=== PATIENT | male | born 1990 | race Caucasian/White ===

== ENCOUNTER 2019-02-08 08:54 | Inpatient (IN) | payer OTHER ==
[2019-02-08] VITALS (14 sets, daily range): BP systolic 114–140; BP diastolic 50–74; PULSE 49–104; RESP 13–22; Ht 177.8 cm; Wt 94.4 kg
[~2019-02-08] VITALS: Ht 177.8 cm; Wt 94.4 kg
[~2019-02-08 08:54] MED LIST: ASC500 PO; CEFAZOLIN 1 GM/50 ML (PMX) 50 ML IVPB SCH; HYDR-3601 PO; SEVOFLURANE 15 MIN ONE; ZINC220C5 PO
[2019-02-08] MEDS: LACTATED RINGER'S 1,000 ML IV SCH ×2 (15:00→22:17)
[2019-02-08] MEDS ORDERED: ROCURONIUM 50 MG INJ ONE ×4 (15:49→18:31)
[2019-02-08] MEDS ORDERED: FENTAnyl 50 MCG/ML VIAL ONE ×2 (15:49→19:43)
[2019-02-08] MEDS ORDERED: ROPIVACAINE 0.2% 20 ML VIAL ONE (15:49)
[2019-02-08] MEDS ORDERED: MIDAZOLAM 1 MG/ML 2 ML INJ ONE (15:49)
[2019-02-08] MEDS ORDERED: ROPIVACAINE 0.5 % 30 ML VIAL ONE (15:49)
[2019-02-08] MEDS ORDERED: PROPOFOL 20 ML ONE (15:49)
[2019-02-08] MEDS ORDERED: METOCLOPRAMIDE 10 MG INJ ONE (16:44)
[2019-02-08] MEDS ORDERED: DEXAMETHASONE 4 MG/ML 5 ML INJ ONE (16:44)
[2019-02-08] MEDS ORDERED: CEFAZOLIN 1 GM INJ ONE (16:44)
[2019-02-08] MEDS ORDERED: KETOROLAC 30 MG INJ ONE (16:44)
[2019-02-08] MEDS ORDERED: ONDANSETRON 4 MG INJ ONE (16:44)
[2019-02-08] MEDS ORDERED: HYDROmorphONE 1 MG/5 ML IV SYRINGE IV PRN ×3 (18:00)
[2019-02-08] MEDS ORDERED: METOCLOPRAMIDE 10 MG INJ IV PRN (18:00)
[2019-02-08] MEDS ORDERED: MEPERIDINE 25 MG INJ IV PRN (18:00)
[2019-02-08] MEDS ORDERED: ONDANSETRON 4 MG INJ IV PRN (18:00)
[2019-02-08] MEDS ORDERED: DIPHENHYDRAMINE 50 MG INJ IV PRN (18:00)
[2019-02-08] MEDS ORDERED: OXYCODONE/ACETAMINOPHEN (5/325) TAB PO PRN (18:00)
[2019-02-08] MEDS ORDERED: FENTAnyl 50 MCG/ML VIAL IV PRN ×2 (18:00)
[2019-02-08] MEDS ORDERED: SUGAMMADEX SODIUM 200 MG/2 ML VIAL IV ONE (19:44)
[2019-02-08] MEDS ORDERED: CYCLOBENZAPRINE 10 MG TAB PO ONE (20:30)
[2019-02-08] MEDS ORDERED: ZOLPIDEM 5 MG TAB PO PRN (20:30)
[2019-02-08] MEDS ORDERED: ONDANSETRON 4 MG TAB PO PRN (20:30)
[2019-02-08] MEDS: FENTAnyl 50 MCG/ML VIAL IV PRN ×2 (21:00→22:17)
[2019-02-08] MEDS: morphine 2 MG INJ IV PRN (22:07)
[2019-02-08] MEDS: ASCORBIC ACID 500 MG TAB PO SCH (22:16)
[2019-02-08] MEDS: CEFAZOLIN 1 GM/50 ML (PMX) 50 ML IVPB SCH (22:17)
[2019-02-09] MEDS: HYDROCODONE/APAP (5/325) TAB PO PRN ×2 (01:18→20:29)
[2019-02-09] MEDS: morphine 2 MG INJ IV PRN ×10 (02:27→21:46)
[2019-02-09] MEDS: CEFAZOLIN 1 GM/50 ML (PMX) 50 ML IVPB SCH ×3 (05:25→20:26)
[2019-02-09 07:21] VITALS: BP 120/58; PULSE 71; RESP 16
[2019-02-09] MEDS: ZINC SULFATE 220 MG CAP PO SCH (09:10)
[2019-02-09] MEDS: ASCORBIC ACID 500 MG TAB PO SCH ×2 (09:10→20:26)
[2019-02-09] MEDS: LACTATED RINGER'S 1,000 ML IV SCH ×3 (10:20→14:45)
[2019-02-09 14:13] VITALS: BP 119/60; PULSE 72; RESP 16
[2019-02-09 19:42] VITALS: BP 129/72; PULSE 67; RESP 16
[2019-02-10] MEDS: morphine 2 MG INJ IV PRN ×3 (01:00→05:34)
[2019-02-10] MEDS: LACTATED RINGER'S 1,000 ML IV SCH (01:01)
[2019-02-10 02:13] VITALS: BP 126/73; PULSE 69; RESP 18
[2019-02-10] MEDS: CEFAZOLIN 1 GM/50 ML (PMX) 50 ML IVPB SCH ×2 (05:34→14:16)
[2019-02-10] MEDS: morphine 4 MG/ML VIAL IV PRN ×5 (07:47→21:38)
[2019-02-10 08:07] VITALS: BP 143/79; PULSE 55; RESP 19
[2019-02-10] MEDS: ASCORBIC ACID 500 MG TAB PO SCH ×2 (09:36→21:37)
[2019-02-10] MEDS: ZINC SULFATE 220 MG CAP PO SCH (09:36)
[2019-02-10 14:00] VITALS: BP 159/83; PULSE 53; RESP 19
[2019-02-10 20:00] VITALS: BP 140/75; PULSE 54; RESP 19
[2019-02-10] MEDS ORDERED: MAGNESIUM HYDROXIDE 30ML CUP PO PRN (21:00)
[2019-02-10] MEDS: SENNA TAB PO SCH (21:00)
[2019-02-10] MEDS ORDERED: ACETAMINOPHEN 325 MG TAB PO PRN (21:00)
[2019-02-10] MEDS ORDERED: MAGNESIUM HYDROXIDE 30ML CUP ONE (21:20)
[2019-02-10] MEDS ORDERED: SENNA TAB ONE (21:20)
[2019-02-11] MEDS: HYDROCODONE/APAP (5/325) TAB PO PRN ×5 (00:23→16:40)
[2019-02-11 02:00] VITALS: BP 131/72; PULSE 51; RESP 19
[2019-02-11 08:00] VITALS: BP 131/75; PULSE 52; RESP 18
[2019-02-11] MEDS: ASCORBIC ACID 500 MG TAB PO SCH (08:32)
[2019-02-11] MEDS: ZINC SULFATE 220 MG CAP PO SCH (08:32)
[2019-02-11] MEDS: SENNA TAB PO SCH (08:33)
[2019-02-11 14:00] VITALS: BP 136/74; PULSE 58; RESP 18
== END 2019-02-11 17:57 | DRG 494 ==
LOC: REC 13:53 → PP2 21:53
PROVIDERS: ADMIT Podiatrist Foot & Ankle Surgery; ATTEND Internal Medicine
PROC: 0SNG0ZZ Release Left Ankle Joint, Open Approach (ICD-10-PCS; 2019-02-08)
PROC: 0SN Lower Joints, Release (ICD-10-PCS; 2019-02-08)
PROC: 0L8P0ZZ Division of Left Lower Leg Tendon, Open Approach (ICD-10-PCS; principal; 2019-02-08 15:30)
DX: Q66.0 Congenital talipes equinovarus (principal); Q68.8 Other specified congenital musculoskeletal deformities
CPT/HCPCS: 73610; 80048; 80053; 85025; 97110; 97116; 97161; 97530; C1713; J0690; J1100; J1885; J2250; J2270; J2405; J2765; J2795; J3010; J7120

== ENCOUNTER 2019-02-11 17:49 | Inpatient (IN) | payer OTHER ==
[~2019-02-11] VITALS: Ht 177.8 cm; Wt 93.0 kg
[~2019-02-11 17:49] MED LIST changes: -CEFAZOLIN 1 GM/50 ML (PMX) 50 ML IVPB SCH; -SEVOFLURANE 15 MIN ONE
[2019-02-11] MEDS ORDERED: ACETAMINOPHEN 325 MG TAB PO PRN (18:30)
[2019-02-11] MEDS ORDERED: LACTULOSE 30ML CUP PO PRN (18:30)
[2019-02-11] MEDS ORDERED: ZOLPIDEM 5 MG TAB PO PRN (18:30)
[2019-02-11] MEDS ORDERED: BISACODYL 10 MG SUPP PR PRN (18:30)
[2019-02-11] MEDS ORDERED: PENDING SANTYL ORDER FOR WOUND CARE XX PRN (18:30)
[2019-02-11] MEDS ORDERED: MAGNESIUM HYDROXIDE 30ML CUP PO PRN (18:30)
[2019-02-11] MEDS ORDERED: HYDROCODONE/APAP (5/325) TAB PO PRN (18:30)
[2019-02-11 20:00] VITALS: BP 125/65; PULSE 87; RESP 18
[2019-02-11] MEDS: ASCORBIC ACID 500 MG TAB PO SCH (20:08)
[2019-02-11] MEDS: HYDROCODONE/APAP (5/325) TAB PO PRN (20:08)
[2019-02-11] MEDS: DOCUSATE SODIUM 100 MG CAP PO SCH (20:08)
[2019-02-11] MEDS: SENNA TAB PO SCH (20:09)
[2019-02-11] MEDS ORDERED: SENNA TAB PO SCH (21:00)
[2019-02-11 23:04] VITALS: Ht 177.8 cm; Wt 93.0 kg
[2019-02-12] MEDS: HYDROCODONE/APAP (5/325) TAB PO PRN ×2 (00:07→05:08)
[2019-02-12 02:00] VITALS: BP 118/72; PULSE 78; RESP 18
[2019-02-12 07:30] VITALS: BP 146/85; PULSE 56; RESP 18
[2019-02-12] MEDS ORDERED: HYDROCODONE/APAP (10/325) TAB PO PRN (08:30)
[2019-02-12] MEDS: DOCUSATE SODIUM 100 MG CAP PO SCH ×2 (09:37→20:47)
[2019-02-12] MEDS: ASCORBIC ACID 500 MG TAB PO SCH ×2 (09:37→20:47)
[2019-02-12] MEDS: ZINC SULFATE 220 MG CAP PO SCH (09:37)
[2019-02-12] MEDS: SENNA TAB PO SCH ×2 (09:37→20:47)
[2019-02-12] MEDS: HYDROCODONE/APAP (10/325) TAB PO PRN ×3 (09:41→20:47)
[2019-02-12] MEDS: ENOXAPARIN 40 MG/0.4 ML SYG SC SCH (13:57)
[2019-02-12 14:00] VITALS: BP 132/74; PULSE 60; RESP 18
[2019-02-12 19:31] VITALS: BP 138/68; PULSE 74; RESP 18
[2019-02-13] MEDS: HYDROCODONE/APAP (10/325) TAB PO PRN ×4 (01:23→20:39)
[2019-02-13 03:01] VITALS: BP 132/73; PULSE 72; RESP 18
[2019-02-13 07:30] VITALS: BP 137/77; PULSE 66; RESP 18
[2019-02-13] MEDS: DOCUSATE SODIUM 100 MG CAP PO SCH ×2 (08:18→20:39)
[2019-02-13] MEDS: ZINC SULFATE 220 MG CAP PO SCH (08:18)
[2019-02-13] MEDS: ASCORBIC ACID 500 MG TAB PO SCH ×2 (08:18→20:39)
[2019-02-13] MEDS: ENOXAPARIN 40 MG/0.4 ML SYG SC SCH (08:19)
[2019-02-13] MEDS: SENNA TAB PO SCH ×2 (08:21→20:39)
[2019-02-13 09:22] VITALS: BP 136/79; PULSE 62; RESP 18
[2019-02-13 14:00] VITALS: BP 137/84; PULSE 77; RESP 20
[2019-02-13 19:56] VITALS: BP 138/78; PULSE 59; RESP 18
[2019-02-14 03:18] VITALS: BP 136/76; PULSE 60; RESP 20
[2019-02-14 07:00] VITALS: BP 150/76; PULSE 71; RESP 18
[2019-02-14] MEDS: SENNA TAB PO SCH ×2 (08:49→20:27)
[2019-02-14] MEDS: ASCORBIC ACID 500 MG TAB PO SCH ×2 (08:49→20:26)
[2019-02-14] MEDS: ZINC SULFATE 220 MG CAP PO SCH (08:49)
[2019-02-14] MEDS: DOCUSATE SODIUM 100 MG CAP PO SCH ×2 (08:49→20:26)
[2019-02-14] MEDS: ENOXAPARIN 40 MG/0.4 ML SYG SC SCH (08:56)
[2019-02-14 14:00] VITALS: BP 134/86; PULSE 67; RESP 18
[2019-02-14 20:00] VITALS: BP 150/79; PULSE 54; RESP 18
[2019-02-14] MEDS: HYDROCODONE/APAP (10/325) TAB PO PRN (20:27)
[2019-02-15 02:00] VITALS: BP 150/85; PULSE 56; RESP 18
[2019-02-15] MEDS: HYDROCODONE/APAP (10/325) TAB PO PRN ×4 (02:38→20:07)
[2019-02-15 07:30] VITALS: BP 155/90; PULSE 54; RESP 18
[2019-02-15] MEDS: ENOXAPARIN 40 MG/0.4 ML SYG SC SCH (09:00)
[2019-02-15] MEDS: ASCORBIC ACID 500 MG TAB PO SCH ×2 (09:27→20:07)
[2019-02-15] MEDS: SENNA TAB PO SCH ×2 (09:27→20:07)
[2019-02-15] MEDS: ZINC SULFATE 220 MG CAP PO SCH (09:27)
[2019-02-15] MEDS: DOCUSATE SODIUM 100 MG CAP PO SCH ×2 (09:27→20:07)
[2019-02-15 14:00] VITALS: BP 140/86; PULSE 58; RESP 18
[2019-02-15 20:00] VITALS: BP 141/77; PULSE 54; RESP 18
[2019-02-16] MEDS: HYDROCODONE/APAP (10/325) TAB PO PRN ×2 (00:08→08:38)
[2019-02-16 02:00] VITALS: BP 138/87; PULSE 54; RESP 18
[2019-02-16 07:00] VITALS: BP 150/79; PULSE 53; RESP 18
[2019-02-16] MEDS: SENNA TAB PO SCH (08:37)
[2019-02-16] MEDS: DOCUSATE SODIUM 100 MG CAP PO SCH (08:37)
[2019-02-16] MEDS: ASCORBIC ACID 500 MG TAB PO SCH (08:38)
[2019-02-16] MEDS: ZINC SULFATE 220 MG CAP PO SCH (08:38)
[2019-02-16] MEDS: ENOXAPARIN 40 MG/0.4 ML SYG SC SCH (08:39)
[2019-02-16 14:00] VITALS: BP 138/81; PULSE 65; RESP 18
== END 2019-02-16 16:58 | disposition home health service (06) | DRG 561 ==
LOC: VRC 18:06
PROVIDERS: ADMIT Physical Medicine & Rehabilitation; ATTEND Internal Medicine Pulmonary Disease
PROC: F07Z5ZZ Bed Mobility Treatment (ICD-10-PCS; principal; 2019-02-12)
PROC: F07Z8ZZ Transfer Training Treatment (ICD-10-PCS; 2019-02-12)
PROC: F07Z9ZZ Gait Training/Functional Ambulation Treatment (ICD-10-PCS; 2019-02-12)
PROC: F08Z2ZZ Grooming/Personal Hygiene Treatment (ICD-10-PCS; 2019-02-12)
PROC: F08Z1ZZ Dressing Techniques Treatment (ICD-10-PCS; 2019-02-12)
PROC: F08Z0ZZ Bathing/Showering Techniques Treatment (ICD-10-PCS; 2019-02-12)
DX: Z47.89 Encounter for other orthopedic aftercare (principal); G89.18 Other acute postprocedural pain; R60.0 Localized edema; Z74.09 Other reduced mobility
CPT/HCPCS: 80053; 81003; 85025; 87081; 87086; 97110; 97116; 97162; 97165; 97530; 97535; 97542; J1650

== ENCOUNTER 2019-04-09 13:34 | Inpatient (IN) | payer OTHER ==
[~2019-04-09] VITALS: Ht 177.8 cm; Wt 97.8 kg
[2019-04-09] VITALS (9 sets, daily range): BP systolic 117–137; BP diastolic 53–77; PULSE 52–98; RESP 13–24; Ht 177.8 cm; Wt 97.8 kg
[~2019-04-09 13:34] MED LIST changes: +CEFAZOLIN 2 GM/50 ML (PMX) 50 ML IVPB ONE
[2019-04-09] MEDS: LACTATED RINGER'S 1,000 ML IV SCH ×2 (15:52→23:40)
[2019-04-09] MEDS ORDERED: PROPOFOL 20 ML ONE ×2 (18:18→18:56)
[2019-04-09] MEDS ORDERED: SUCCINYLCHOLINE CHLORIDE 100 MG/5 ML SYG IV ONE (18:18)
[2019-04-09] MEDS ORDERED: MIDAZOLAM 1 MG/ML 2 ML INJ ONE (18:18)
[2019-04-09] MEDS ORDERED: ROPIVACAINE 0.5 % 30 ML VIAL ONE (18:18)
[2019-04-09] MEDS ORDERED: ROCURONIUM 50 MG INJ ONE (18:18)
[2019-04-09] MEDS ORDERED: LIDOCAINE 2% (SDV) 5 ML INJ ONE (18:18)
[2019-04-09] MEDS ORDERED: CEFAZOLIN 1 GM INJ ONE (18:58)
[2019-04-09] MEDS ORDERED: DEXAMETHASONE 4 MG/ML 5 ML INJ ONE (19:03)
[2019-04-09] MEDS ORDERED: HYDROmorphONE 2 MG/ML SYG ONE (19:03)
[2019-04-09] MEDS ORDERED: FAMOTIDINE 20 MG INJ ONE (19:03)
[2019-04-09] MEDS ORDERED: ONDANSETRON 4 MG INJ ONE (19:03)
[2019-04-09] MEDS ORDERED: LIDOCAINE 1% (MPF) 30 ML INJ ONE (20:47)
[2019-04-09] MEDS ORDERED: LIDOCAINE 1%/EPI 30 ML INJ ONE (20:47)
[2019-04-09] MEDS ORDERED: POLYMYXIN/BACITRACIN 1L IRRIG IRR ONE (20:54)
[2019-04-09] MEDS ORDERED: DIPHENHYDRAMINE 50 MG INJ IV PRN (22:00)
[2019-04-09] MEDS ORDERED: MEPERIDINE 25 MG INJ IV PRN (22:00)
[2019-04-09] MEDS ORDERED: PROCHLORPERAZINE 10 MG INJ IV PRN (22:00)
[2019-04-09] MEDS ORDERED: ONDANSETRON 4 MG INJ IV PRN (22:00)
[2019-04-09] MEDS ORDERED: HYDROmorphONE 1 MG/5 ML IV SYRINGE IV PRN ×3 (22:00)
[2019-04-09] MEDS ORDERED: FENTAnyl 50 MCG/ML VIAL IV PRN ×3 (22:00)
[2019-04-10] VITALS (13 sets, daily range): BP systolic 106–133; BP diastolic 54–84; PULSE 62–96; RESP 14–20
[2019-04-10] MEDS: morphine 2 MG INJ IV PRN ×6 (01:01→22:07)
[2019-04-10] MEDS: HEPARIN 5,000 UNIT/1 ML VIAL SC SCH ×3 (06:56→21:37)
[2019-04-10] MEDS: CEFAZOLIN 1 GM/50 ML (PMX) 50 ML IVPB SCH (09:04)
[2019-04-10] MEDS: LACTATED RINGER'S 1,000 ML IV SCH (10:16)
[2019-04-10] MEDS ORDERED: HYDROCODONE/APAP (5/325) TAB PO PRN (22:30)
[2019-04-11] MEDS: morphine 2 MG INJ IV PRN ×3 (01:29→09:47)
[2019-04-11 02:00] VITALS: BP 122/62; PULSE 84; RESP 18
[2019-04-11] MEDS ORDERED: HYDROmorphONE 1 MG/ML SYG IV STA (02:22)
[2019-04-11] MEDS: HYDROCODONE/APAP (5/325) TAB PO PRN ×4 (04:10→18:08)
[2019-04-11] MEDS: HEPARIN 5,000 UNIT/1 ML VIAL SC SCH ×3 (05:52→22:22)
[2019-04-11] MEDS: LACTATED RINGER'S 1,000 ML IV SCH (07:33)
[2019-04-11] MEDS: CEFAZOLIN 1 GM/50 ML (PMX) 50 ML IVPB SCH (08:14)
[2019-04-11 08:56] VITALS: BP 132/62; PULSE 71; RESP 18
[2019-04-11] MEDS: HYDROmorphONE 0.5 MG/0.5 ML SYG IV PRN ×3 (12:09→20:59)
[2019-04-11 16:52] VITALS: BP 142/67; PULSE 62; RESP 18
[2019-04-11 19:30] VITALS: BP 140/77; PULSE 58; RESP 18
[2019-04-11] MEDS: POLYETHYLENE GLYCOL 17 GM PACKET PO SCH (20:59)
[2019-04-12] MEDS: LACTATED RINGER'S 1,000 ML IV SCH (01:02)
[2019-04-12] MEDS: HYDROmorphONE 0.5 MG/0.5 ML SYG IV PRN ×3 (01:05→11:20)
[2019-04-12 01:24] VITALS: BP 142/80; PULSE 58; RESP 18
[2019-04-12] MEDS: HYDROCODONE/APAP (5/325) TAB PO PRN ×4 (03:51→17:58)
[2019-04-12] MEDS: HEPARIN 5,000 UNIT/1 ML VIAL SC SCH ×2 (05:50→13:48)
[2019-04-12 07:50] VITALS: BP 132/78; PULSE 68; RESP 19
[2019-04-12] MEDS: POLYETHYLENE GLYCOL 17 GM PACKET PO SCH (08:57)
[2019-04-12] MEDS: CEFAZOLIN 1 GM/50 ML (PMX) 50 ML IVPB SCH (08:57)
[2019-04-12] MEDS ORDERED: BISACODYL (EC) 5 MG TAB PO PRN (10:30)
== END 2019-04-12 20:10 | DRG 494 ==
LOC: REC 14:40 → EDSTATUS 18:30 → MS1 04-10 00:30
PROVIDERS: ADMIT Internal Medicine; ATTEND Internal Medicine
PROC: 0LSV0ZZ Reposition Right Foot Tendon, Open Approach (ICD-10-PCS; 2019-04-09)
PROC: 0SPG05Z Removal of External Fixation Device from Left Ankle Joint, Open Approach (ICD-10-PCS; 2019-04-09)
PROC: 0L8N0ZZ Division of Right Lower Leg Tendon, Open Approach (ICD-10-PCS; principal; 2019-04-09 17:00)
PROC: 0SNF0ZZ Release Right Ankle Joint, Open Approach (ICD-10-PCS; 2019-04-09 17:00)
DX: M21.542 Acquired clubfoot, left foot (principal); M21.541 Acquired clubfoot, right foot; M21.372 Foot drop, left foot; M21.371 Foot drop, right foot; G89.18 Other acute postprocedural pain
CPT/HCPCS: 73600; 80048; 80053; 83735; 84100; 85025; 97162; C1713; J0690; J1100; J1170; J1200; J1644; J2250; J2270; J2405; J2795; J3010; J7120